=== PATIENT | female | born 1955 | race Caucasian/White ===

== ENCOUNTER 2021-12-30 06:41 | Emergency (ER) | payer MEDICARE, OTHER ==
[2021-12-30 07:10] LABS: Bilirubin 6 (Negative); Blood, Urine 25 (Negative); Glucose, Urine (Dipstick) Normal (Negative); Ketone, Urine 15 mg/dL (Negative); Leukocyte 500 (Negative); Nitrite Positive (Negative); Protein, Urine (Dipstick) 100 mg/dl (Neg-Trace)
[2021-12-30 07:11] LABS: Clarity Slightly Cloudy (Clear)
[2021-12-30 07:20] LABS: Bacteria/HPF 4+ HPF (None Seen); RBC/HPF 0-3 HPF (0-3)
[2021-12-30 07:34] LABS: #Basophils 0.1 10x3/uL (0.0-0.2); #Eosinphils 0.1 10x3/uL (0.0-0.5); #Neutrophils 8.8 10x3/uL (1.5-8.4); %Basophils 0.5 % (0.0-2.0); %Eosinophils 0.9 % (0.0-6.0); %Lymphocytes 9.1 % (18.0-47.0); %Monocytes 9.3 % (0.0-10.0); %Neutrophils 79.9 % (40.0-75.0); Hemoglobin 14.5 g/dL (12.0-15.5); Mean Corpuscular HGB CONC 34.6 g/dL (32.0-36.0); Mean Corpuscular Hemoglobin 31.9 pg (27.0-33.0); Mean Corpuscular Volume 92.3 fl (81.6-98.3); Mean Platelet Volume 9.1 fl (7.4-10.4); Platelet Count 469 10x3/uL (150-450); RBC Distribution Width 13.4 % (11.5-14.5); Red Blood Cell (RBC) Count 4.54 10x6/uL (3.90-5.03)
[2021-12-30] MEDS ORDERED: Ketorolac Tromethamine 30 MG/ML VIAL ONE (07:36)
[2021-12-30] MEDS ORDERED: cefTRIAXone\\ROCEPHIN 1 GM VIAL ONE (07:37)
[2021-12-30] MEDS ORDERED: Ondansetron PF 4 MG/2 ML Vial ONE (07:37)
[2021-12-30 07:46] LABS: ALT (SGPT) 200 U/L (8-55); AST (SGOT) 181 U/L (5-34); Albumin 3.9 g/dL (3.4-4.8); Alkaline Phosphatase 212 U/L (40-110); Anion Gap 15 mmol/L (10-20); BUN (Urea Nitrogen) 14 mg/dL (9.8-20.1); Bilirubin, Total 5.3 mg/dL (0.2-1.2); Calc. Creatinine Clearance 0 mL/min (70-130); Calcium 9.5 mg/dL (7.8-10.44); Carbon Dioxide 24 mmol/L (23-31); Chloride 99 mmol/L (98-107); Estimated GFR 64; Globulin 4.9 g/dL (2.4-3.5); Glucose 119 mg/dL (80-115); Potassium 3.9 mmol/L (3.5-5.1); Protein, Total 8.8 g/dL (5.8-8.1); Sodium 134 mmol/L (136-145)
== END 2021-12-30 08:48 | disposition home or self-care (01) ==
LOC: CSHERS 06:41
DX: N30.01 Acute cystitis with hematuria (principal); E86.0 Dehydration; R74.01 Elevation of levels of liver transaminase levels; E66.9 Obesity, unspecified
CPT/HCPCS: 80053; 81003; 81015; 85025; 87077; 87086; 87186; 96361; 96374; 96375; J0696; J1885; J2405